=== PATIENT | female | born 1990 | race Caucasian/White ===

== ENCOUNTER 2024-01-04 06:20 | Inpatient (IN) | payer BC ==
[2024-01-04] MEDS: ELECTROLYTE-148 SOLN 500 ML IV SCH ×2 (06:40→07:00)
[2024-01-04] MEDS: ELECTROLYTE-148 SOLN 500 ML IV ONE (06:45)
[2024-01-04 07:07] VITALS: BMI 39.1
[2024-01-04] MEDS: CITRIC ACID/SODIUM CITRATE 30 ML UNIT-DOSE CUP PO ONE ×2 (07:20→08:10)
[2024-01-04 07:30] LABS: BASO % 0.5 % (0-2.0); EOS % 1.3 % (0-4.5); HEMATOCRIT 33.1 % (32.4-45.2); HEMOGLOBIN 11.2 GM/dL (10.7-15.3); LYMPH % 17.8 % (8-40); MCHC 33.7 g/dl (32.0-36.0); MEAN CELL VOLUME 86.1 fl (80-96); MEAN PLT VOLUME 8.9 fl (7.5-11.1); MONO % 7.4 % (3.8-10.2); PLATELET COUNT 213 10^3/uL (134-434); RBC 3.85 M/mm3 (3.60-5.2); RDW 14.8 % (11.6-15.6); WHITE BLOOD COUNT 7.1 K/mm3 (4.0-10.0)
[2024-01-04 07:33] LABS: INR 0.95 (0.83-1.09)
[2024-01-04 07:36] LABS: ACTIVATED PTT 24.8 SECONDS (25.2-36.5)
[2024-01-04 08:00] LABS: POTASSIUM 3.9 mmol/L (3.5-5.1)
[2024-01-04 08:01] LABS: BLOOD UREA NITROGEN 8.8 mg/dL (7-18); CALCIUM 8.9 mg/dL (8.5-10.1)
[2024-01-04] MEDS ORDERED: morphine SULFATE/PF 1 MG/2 ML (2cc Syringe - QUVA) ONE (08:01)
[2024-01-04] MEDS ORDERED: FENTANYL CITRATE/PF 50 MCG/ML VIAL ONE (08:01)
[2024-01-04 08:04] LABS: CREATININE 0.6 mg/dL (0.55-1.3)
[2024-01-04] MEDS: ELECTROLYTE-148 SOLN 1,000 ML IV SCH (08:15)
[2024-01-04] MEDS ORDERED: PHENYLEPHRINE HCL 10 MG/1 ML SINGLE DOSE VIAL ONE (08:36)
[2024-01-04] MEDS ORDERED: ceFAZolin SODIUM 1 GM VIAL ONE (08:36)
[2024-01-04] MEDS ORDERED: OXYTOCIN 10 UNITS/ML VIAL ONE (08:51)
[2024-01-04] MEDS ORDERED: ACETAMINOPHEN 325 MG TABLET (FP) PO PRN (09:38)
[2024-01-04] MEDS ORDERED: ONDANSETRON 4 MG/2 ML VIAL IVPB PRN (09:38)
[2024-01-04] MEDS ORDERED: oxyCODONE HCL 5 MG TABLET PO PRN (09:38)
[2024-01-04] MEDS: PRENATAL VITAMINS W/ FOLIC ACID TABLET (FP) PO SCH (10:00)
[2024-01-04] MEDS: OXYTOCIN 20 UNITS in 0.9% NS 20 UNIT/1,000 ML INFUS.BAG IV SCH (11:30)
[2024-01-04] MEDS: ACETAMINOPHEN 1000 MG/100 ML BAG IVPB PRN (13:55)
[2024-01-04] MEDS: IBUPROFEN 800 MG/8 ML IJ IVPB PRN (15:57)
[2024-01-04] MEDS ORDERED: IBUPROFEN 800 MG/8 ML IJ IVPB PRN (18:00)
[2024-01-04] MEDS: SENNOSIDES/DOCUSATE COMBO (SENNA PLUS) TABLET (UD) PO SCH (21:23)
[2024-01-05] MEDS: IBUPROFEN 600 MG TABLET (FP) PO SCH (01:07)
[2024-01-05 07:59] LABS: BASO % 0.3 % (0-2.0); EOS % 0.7 % (0-4.5); HEMATOCRIT 28.2 % (32.4-45.2); HEMOGLOBIN 9.6 GM/dL (10.7-15.3); MCH 29.7 pg (25.7-33.7); MCHC 34.1 g/dl (32.0-36.0); MEAN CELL VOLUME 87.1 fl (80-96); MEAN PLT VOLUME 8.6 fl (7.5-11.1); MONO % 7.1 % (3.8-10.2); NEUT % 80.9 % (42.8-82.8); PLATELET COUNT 148 10^3/uL (134-434); RBC 3.24 M/mm3 (3.60-5.2); WHITE BLOOD COUNT 7.6 K/mm3 (4.0-10.0)
[2024-01-05] MEDS ORDERED: BISACODYL 10 MG SUPP.RECT RC PRN (09:38)
[2024-01-05] MEDS: ENOXAPARIN NA (PORCINE) 40 MG/0.4 ML DISP.SYRIN SQ SCH (09:42)
[2024-01-05] MEDS: SIMETHICONE 80 MG TAB.CHEW (FP) PO PRN (17:37)
[2024-01-06] MEDS ORDERED: oxyCODONE HCL 5 MG TABLET PO PRN (08:20)
[2024-01-06] MEDS: ACETAMINOPHEN 500 MG TABLET (FP) PO SCH (09:30)
[2024-01-08 00:56] VITALS: TEMP 97.9
[2024-01-08 12:01] VITALS: BP 133/81; PULSE 75; RESP 17
== END 2024-01-08 13:55 | disposition home or self-care (01) | DRG 788 ==
LOC: JLDR 06:20 → J3W 12:35
PROVIDERS: ADMIT Specialist; ATTEND Specialist
PROC: 10D00Z1 Extraction of Products of Conception, Low, Open Approach (ICD-10-PCS; principal; 2024-01-04)
DX: O36.63X0 Maternal care for excessive fetal growth, third trimester, not applicable or unspecified (principal); Z3A.38 38 weeks gestation of pregnancy; Z37.0 Single live birth
CPT/HCPCS: 36415; 80048; 85025; 85610; 85730; 86780; 86850; 86900; 86901; 88307-TC; J0131

== ENCOUNTER 2024-01-11 07:21 | Emergency (ER) | payer BC ==
[2024-01-11 07:27] VITALS: TEMP 98; BMI 34.4
[2024-01-11 09:16] LABS: BASO % 0.7 % (0-2.0); EOS % 1.5 % (0-4.5); HEMATOCRIT 30.4 % (32.4-45.2); LYMPH % 10.9 % (8-40); MCH 28.7 pg (25.7-33.7); MCHC 32.8 g/dl (32.0-36.0); MEAN CELL VOLUME 87.4 fl (80-96); MEAN PLT VOLUME 8.7 fl (7.5-11.1); MONO % 6.7 % (3.8-10.2); NEUT % 80.2 % (42.8-82.8); PLATELET COUNT 207 10^3/uL (134-434); RBC 3.48 M/mm3 (3.60-5.2); RDW 15.4 % (11.6-15.6); WHITE BLOOD COUNT 5.9 K/mm3 (4.0-10.0)
[2024-01-11 09:35] LABS: POTASSIUM 4.8 mmol/L (3.5-5.1)
[2024-01-11 09:38] LABS: CALCIUM 9.2 mg/dL (8.5-10.1)
[2024-01-11 09:39] LABS: ALBUMIN 2.8 g/dl (3.4-5.0); BLOOD UREA NITROGEN 21.4 mg/dL (7-18); INR 1.03 (0.83-1.09)
[2024-01-11 09:42] LABS: CREATININE 0.8 mg/dL (0.55-1.3)
[2024-01-11 09:43] LABS: BILIRUBIN,TOTAL 0.6 mg/dL (0.2-1); TOT PROT 6.4 g/dl (6.4-8.2)
[2024-01-11] MEDS ORDERED: LABETALOL HCL 20 MG/4 ML VIAL ONE (10:06)
[2024-01-11] MEDS: LABETALOL HCL 5 MG/1 ML (100MG/20 ML VIAL) IVPUSH ONE (10:14)
[2024-01-11 13:33] LABS: EPI CELLS >36 /uL (0-25.1); HYALINE CASTS 2 /uL (0-3.1); PH,URINE 6.5 (5.0-8.0); URINE APPEARANCE CLOUDY; URINE BACTERIA 1320 /uL (0-1359); URINE BILIRUBIN NEGATIVE (NEGATIVE); URINE COLOR YELLOW; URINE GLUCOSE (UA) NEGATIVE (NEGATIVE); URINE KETONE NEGATIVE (NEGATIVE); URINE LEUK ESTERASE 2+ (NEGATIVE); URINE NITRITE NEGATIVE (NEGATIVE); URINE PROTEIN TRACE (NEGATIVE); URINE RBC 8 /uL (0-23.9); URINE UROBILINOGEN 0.2 mg/dL (0.2-1.0); URINE WBC 117 /uL (0-25.8)
[2024-01-11 13:59] VITALS: BP 153/81; PULSE 52; RESP 16
[2024-01-11 14:20] LABS: URINE CRYSTALS NONE SEEN /hpf
== END 2024-01-11 14:04 | disposition home or self-care (01) ==
LOC: JER 07:21
PROC: 3E033GC Introduction of Other Therapeutic Substance into Peripheral Vein, Percutaneous Approach (ICD-10-PCS; principal; 2024-01-11)
DX: R06.02 Shortness of breath (principal); I10 Essential (primary) hypertension; R06.9 Unspecified abnormalities of breathing
CPT/HCPCS: 36415; 80053; 81003; 82570; 84156; 85025; 85610; 85730; 86850; 86900; 86901; 87086; 93005; 93010; 99284-25